=== PATIENT | female | born 1985 ===

== ENCOUNTER 2017-05-25 15:20 | Emergency (ER) | payer OTHER ==
[2017-05-25 15:47] VITALS: BMI 27.8
[2017-05-25] MEDS ORDERED: Betamethasone Soluspan 30 mg/5mL Inj Susp IM ONE (16:24)
[2017-05-25] MEDS: Betamethasone Soluspan 30 mg/5mL Inj Susp IM ONE (16:49)
[2017-05-25 21:07] VITALS: BP 126/68; PULSE 87
--- NOTE | 2017-05-25 23:00 | OBHP ---
Datetime: 05/25/2017 22:53 IP Adm Impression: , intrauterine IP Admit Plan: Observation/Evaluation; Discharge home Admit Comment, IP Provider: Late entry: Patient is a 32-year-old EDC of 06/21/2017 @ 36.1wk who presents for injection #1 of betamet hasone. Her history is significant for current growth restriction. She denies decrease d movement contractions and spontaneous rupture of membranes or vaginal bleeding. Her Past medical history denies Past surgical history denies Social history denies tobacco alcohol or drug use Prior OB history: delivery 1 for failed induction at term. Impression 36.1 weeks with intrauterine growth restriction plan: Betamethasone injection today. Return to the hospital tomorrow in 24 hours for second injection. Extremities - PN: Normal Abdomen - PN: Normal Back - PN: Normal Lungs - PN: Normal Heart - PN: Normal Neurologic - PN: Normal HEENT - PN: Normal General - PN: Normal FHR - Baseline A Provider: 130 EGA AdmitDate IP: 36.1 Vital Signs Provider: Reviewed; Within Normal Limits IP Chief Complaint: Other NICHD Variability Prov Fetus A: Moderate 6-25bpm NICHD Accel Fetus A IP Provider: 15X15 FHR Category Provider Fetus A: Category I NICHD Decel Fetus A IP Provider: None
== END 2017-05-25 17:00 | disposition home or self-care (01) ==
LOC: H.EROB2 15:20
DX: O36.5930 Maternal care for other known or suspected poor fetal growth, third trimester, not applicable or unspecified (principal); Z3A.36 36 weeks gestation of pregnancy; Z23 Encounter for immunization
CPT/HCPCS: 96372; 99281; J0702

== ENCOUNTER 2017-05-26 17:34 | Emergency (ER) | payer OTHER ==
[2017-05-25 15:47] VITALS: BMI 27.8
[2017-05-26] MEDS: Betamethasone Soluspan 30 mg/5mL Inj Susp IM ONE (18:01)
--- NOTE | 2017-05-26 18:43 | OBDCSUM ---
Datetime: 05/26/2017 18:23 Discharged to, Provider: Home Follow up at, Provider: [facility] L_D Disch Instr Activity: Normal activity Disch Instr Diet: Restricted, specify Discharge Diet restrict Prov: NPO after midnight (nothing to eat or drink after midnight) Discharge Instructions, Provider: Routine instructions given Discharge Time: 05/26/2017 18:23 Follow up in weeks, Provider: 05/27/2017 @ 0500 Disch Referrals: None Contraception discussed, Prov: No Discharge Diagnosis Prov Other: Growth arrest of AC at 36 weeks
--- NOTE | 2017-05-26 18:43 | OBHP ---
Datetime: 05/26/2017 18:07 IP Adm Impression: , intrauterine IP Chief Complaint Other: Arrest of growth IP Admit Plan: Observation/Evaluation; Discharge home Admit Comment, IP Provider: 32 yo G1 at 36+2 wks w/ EDC 06/21/2017 by LMP who present for second dos e of Betamethasone for FLM for arrest of growth of AC by MFM u/s on 05/25/2017. biometry revea led the growth in the 18th %ile (EFW 2433 grams, 5#6). AC was displaying arrest in growth. Pt receiv es her care w/ [facility] w/ Dr. Mcgrath. PMH: Healthy PSH: c/s in 2011 Meds: PNVs All: NKDA Soc hx: Pt denies tobacco, alcohol and illicit drug use Fam hx: Brother- SMA Field Care Coordinator hx: regular periods, denies STDs, denies abn paps Obhx: 02/2012 prmary c/s female, 7#6, post-dates, failed IOL, maternal temp, tachycardia PE: AFVSS Gen'l pt appears comfortable in stretcher Heart: RRR Chest: Lungs clear b/l Abd: soft, NT, gravid Ext: NT, no edema VE: deferred EFM: as above [place]: as above A/P: 32 yo at 36+2 wks for second dose of BMZ for arrest of AC growth, for delivery by c/s tomorrow as per Dr. Colon's recommendation. Pt received BMZ at 18:01. NST reactive. Pt told to return to L_D for repeat c/s tomorrow am. Extremities - PN: Normal Abdomen - PN: Normal Back - PN: Normal Lungs - PN: Normal Heart - PN: Normal Neurologic - PN: Normal General - PN: Normal FHR - Baseline A Provider: 130's Contraction Comments Provider: Quiet EGA AdmitDate IP: 36.2 Vital Signs Provider: Reviewed IP Chief Complaint: Other NICHD Variability Prov Fetus A: Moderate 6-25bpm NICHD Accel Fetus A IP Provider: 15X15 FHR Category Provider Fetus A: Category I NICHD Decel Fetus A IP Provider: None
[2017-05-26 22:42] VITALS: BP 109/69; PULSE 82
== END 2017-05-26 18:23 | disposition home or self-care (01) ==
LOC: H.EROB2 17:34
DX: O36.5930 Maternal care for other known or suspected poor fetal growth, third trimester, not applicable or unspecified (principal); Z3A.36 36 weeks gestation of pregnancy; Z23 Encounter for immunization
CPT/HCPCS: 96372; 99281; J0702

== ENCOUNTER 2017-05-27 05:01 | Inpatient (IN) | payer OTHER ==
[2017-05-27] MEDS ORDERED: Oxytocin 30 UNITS in Sodium Chloride 0.9% 500 ML IV ONE (05:23)
[2017-05-27] MEDS ORDERED: Lactated Ringer's 1,000 ML IV SCH ×2 (05:30→10:30)
[2017-05-27] MEDS: Lactated Ringer's 1,000 ML IV SCH ×2 (05:40→06:45)
[2017-05-27 06:16] LABS: BASO % 0.1 % (0.0-2.0); HEMOGLOBIN 9.9 g/dL (12.0-16.0); LYMPH # 1.2 K/uL (1.0-4.3); LYMPH % 9.1 % (20.0-40.0); MEAN CELL VOLUME 87.2 fl (81.0-99.0); MEAN CORPUSCULAR HEMOGLOBIN 28.2 pg (27.0-31.0); MEAN CORPUSCULAR HGB CONC 32.3 g/dL (33.0-37.0); MEAN PLATELET VOLUME 9.9 fl (7.2-11.7); MONO # 0.3 K/uL (0.0-0.8); MONO % 2.5 % (0.0-10.0); NEUT # 12.1 K/uL (1.8-7.0); NEUT % 88.3 % (50.0-75.0); PLATELET COUNT 178 K/uL (130-400); RBC 3.52 Mil/uL (3.80-5.20); RED CELL DISTRIBUTION WIDTH 13.7 % (11.5-14.5); WHITE BLOOD COUNT 13.7 K/uL (4.8-10.8)
[2017-05-27] MEDS ORDERED: ceFAZolin IV 2 gm in Dextrose 2 GM/50 ML BAG IVPB ONE ×2 (07:27→07:30)
--- NOTE | 2017-05-27 08:01 | OBADHP ---
Datetime: 05/27/2017 07:55 IP Chief Complaint Other: Arrest of AC groweth Admit Comment, IP Provider: 32 yo at 36+3 wks w/ arrest of AC growth on 05/25/2017 MFM u/s, s/p Betamethasone x 2. Pt scheduled for repeat c/s today as per recommendation of Dr. Colon. FHT reactive. Consents for section to be signed w/ Dr. Mcgrath. H_P dictated, "[id number]" (ES) Extremities - PN: Normal Abdomen - PN: Normal Back - PN: Normal Lungs - PN: Normal Heart - PN: Normal Neurologic - PN: Normal General - PN: Normal FHR - Baseline A Provider: 120's Contraction Comments Provider: Quiet Vital Signs Provider: Reviewed; Within Normal Limits NICHD Variability Prov Fetus A: Moderate 6-25bpm NICHD Accel Fetus A IP Provider: 15X15 FHR Category Provider Fetus A: Category I NICHD Decel Fetus A IP Provider: None IP Adm Impression: , intrauterine IP Admit Plan: Initiate Section protocol Datetime: 05/26/2017 18:07 IP Chief Complaint: Other EGA AdmitDate IP: 36.2 Datetime: 05/25/2017 22:53 HEENT - PN: Normal
[2017-05-27 08:04] LABS: EOSINOPHIL 1 % (0-7); LYMPHOCYTE 2 % (20-50); MONOCYTE 3 % (0-10); NEUTROPHIL 94 % (42-75); PLATELET ESTIMATE NORMAL (NORMAL); TOTAL CELLS COUNTED 100; TOXIC GRANULATION PRESENT
[2017-05-27] MEDS ORDERED: Phenylephrine 10 mg/ml Inj ONE (08:37)
[2017-05-27] MEDS ORDERED: ePHEDrine 50 mg/ml Inj ONE (08:37)
[2017-05-27] MEDS ORDERED: Morphine 1 mg/ml preservative-free Inj(Duramorph) ONE (08:37)
[2017-05-27] MEDS ORDERED: DiphenhydrAMINE 50 mg/ml Inj IVP PRN (09:29)
[2017-05-27] MEDS ORDERED: Oxycodone/Acetaminophen 5/325 mg Tab PO PRN (10:29)
--- NOTE | 2017-05-27 17:45 | HP ---
HISTORY OF PRESENT ILLNESS: This is a 32-year-old G2, P1-0-0-1 at 36 weeks and 3 days with an EDC of 06/21/2017 by LMP, who is scheduled for delivery today, as per recommendation by Dr. Colon. On 05/25/2017, the patient had an ultrasound that revealed biometry was in the 18th percentile, EFW was 2433 grams or 5 pounds 6 ounces, AC was displaying arresting growth and so, it was recommended that the patient receives steroids on that day and yesterday and that she should be delivered today. The patient is scheduled today for a repeat section. The patient has a history of a previous section. Her care was with Dr. Mcgrath with [facility]. The patient denies vaginal bleeding, leaking of fluid, or contractions and reports positive movement. All other systems reviewed and negative. PAST MEDICAL HISTORY: Healthy. PAST SURGICAL HISTORY: in 2011. MEDICATIONS: vitamins. ALLERGIES: NO KNOWN DRUG ALLERGIES. SOCIAL HISTORY: The patient denies tobacco, alcohol. No illicit drug use. FAMILY HISTORY: The patient's brother has spinal muscular atrophy. GYNECOLOGIC HISTORY: Regular periods. The patient denies any history of any sexually transmitted diseases or any abnormal pap smears. OBSTETRIC HISTORY: In February 2012, the patient underwent a primary section, female infant, weighing 7 pounds and 6 ounces for post-dates failed induction of labor with maternal fever and tachycardia. LABS: Pap smear was negative. Gonorrhea and chlamydia were negative. HIV was nonreactive. Hemoglobin electrophoresis was within normal limits. Urine culture with no growth. Rubella was immune. Her AFP was negative. Blood type was O positive. Antibody screen negative. On 03/30/2017, HIV was nonreactive, one-hour Glucola was 143, and RPR was nonreactive. On 04/09/2017, 3-hour glucose tolerance test: fasting was 67, one hour 89, two hours 77, and three hours 67, negative. GBS was done on 05/25/2017 and is pending. On 05/25/2017, hemoglobin was 11.7 and platelets were 208. Panorama was low risk male fetus. First trimester screen was within range. SMN1 copy number 1. Pt reports that FOB is not a carrier of SMA. PHYSICAL EXAMINATION: GENERAL: The patient appears comfortable, lying in bed. VITAL SIGNS: Afebrile. Vital signs stable. HEART: Regular rate and rhythm. LUNGS: Clear to auscultation bilaterally. ABDOMEN: Soft, nontender, gravid. EXTREMITIES: Nontender. No edema. VAGINAL: Deferred. EXTERNAL MONITORING: Baseline is in the 120s with moderate variability and positive accelerations. Tocodynamometer is quiet. ASSESSMENT AND PLAN: This is a 32-year-old 2, para 1-0-0-1 at 36 weeks and 3 days, status post betamethasone x 2, scheduled for repeat section today due to arrest of growth of the abdominal circumference on 05/25/2017 Maternal Medicine Ultrasound. Consents to be signed w/ Dr. Mcgrath. Maribel Walker MD MTDD
--- NOTE | 2017-05-27 19:39 | OBDS ---
DELIVERY PERSONNEL Delivery Doctor: Dewayne Mcgrath MD Scrub Nurse: Dodie [employer] Department Head: Yelitza You RN Anesthesiologist: Tarah Taylor MD MATERNAL INFORMATION Delivery Anesthesia: Spinal Medications in Delivery: Pitocin 30 units Estimated Blood Loss (ml): 800 Placenta Cultured: No Maternal Complications: None RN Comments: see provider comments. Provider Comments: See operative report LABOR SUMMARY EDC: 06/21/2017 00:00 EDC: 06/21/2017 00:00 No. Babies in Womb: 1 Attempted: No LABOR INFORMATION Reason for Induction: Not Applicable Oxytocin: N/A Group B Beta Strep: Done, Result Unknown Steroids Given: Full Course; < 24 Hours before Delivery MEMBRANES Membranes Rupture Method: Artificial Rupture of Membranes: 05/27/2017 09:04 Length of Rupture (hrs): 0.02 Amniotic Fluid Color: Bloody Amniotic Fluid Amount: Scant STAGES OF LABOR Stage 3 hrs: 0 Stage 3 min: 1 CSECTION DELIVERY Primary Indication: Repeat Elective Other Primary Indication: IUGR Secondary Indication: Repeat Elective CSection Urgency: Elective CSection Incidence: Repeat Labor: No Labor Elective: Elective CSection Incision: Lower Uterine Transverse BABY A INFORMATION Delivery Date/Time: 05/27/2017 09:05 Method of Delivery: Born in Route : No : N/A Forceps: N/A Vacuum Extraction: N/A Shoulder Dystocia : No SHOULDER DYSTOCIA BABY A Infant Delivery Date/Time: 05/27/2017 09:05 PRESENTATION/POSITION BABY A Presentation: Cephalic Cephalic Presentation: Vertex Breech Presentation: N/A PLACENTA INFORMATION BABY A Placenta Delivery Time : 05/27/2017 09:06 Placenta Method of Delivery: Spontaneous Placenta Status: Delivered SCORES BABY A Heart Rate 1 min: >100 bpm Resp Effort 1 min: Good Cry Reflex Irritability 1 min: Cough or Sneeze or Pulls Away Muscle Tone 1 min: Active Motion Color 1 min: Body [place], Extremities Blue Resuscitation Effort 1 min: Tactile Stimulation SCORE 1 MIN: 9 Heart Rate 5 min: >100 bpm Resp Effort 5 min: Good Cry Reflex Irritability 5 min: Cough or Sneeze or Pulls Away Muscle Tone 5 min: Active Motion Color 5 min: Body [place], Extremities Blue Resuscitation Effort 5 min: Tactile Stimulation SCORE 5 MIN: 9 INFORMATION BABY A Gestational Age at Delivery: 36.0 Gestational Status: Infant Outcome : Liveborn Infant Condition : Stable Sex: Male IDENTIFICATION/MEDS BABY A ID Band Number: [id number] ID Band Location: Left Leg; Left Arm WEIGHT/LENGTH BABY A Infant Birthweight (gms): 2650 Infant Weight (lb): 5 Infant Weight (oz): 13 CORD INFORMATION BABY A No. Cord Vessels: 3 Nuchal Cord : N/A Cord Blood Taken: N/A Suction: None ASSESSMENT BABY A Complications: None Physical Findings at Delivery: Within Normal Limits Respirations: Appears Normal Vulnerability Researcher/ALS Called : No Infant Care By: Maranda Wagoner Transferred To: Remains with Mother
--- NOTE | 2017-05-27 20:17 | OP ---
PROCEDURE DATE: PREOPERATIVE DIAGNOSES: Intrauterine growth restriction at 36 weeks, history of previous section, recommendation for delivery, abdominal circumference in 1 percentile. POSTOPERATIVE DIAGNOSES: Intrauterine growth restriction at 36 weeks, history of previous section, recommendation for delivery, abdominal circumference in 1 percentile. THE OPERATION PERFORMED: Repeat low-flap transverse section via Pfannenstiel skin incision. SURGEON: Bryanna Mcgrath MD. LUMBER PLANER: Maribel Walker MD. She was helpful in creating exposure, obtaining hemostasis, delivery of the infant. The procedure would not have been possible without her assistance. ANESTHESIA ADMINISTERED BY: Bird Taylor MD. OPERATIVE FINDINGS: A baby boy. Apgars 9 and 9, weighing 2650 grams. Normal uterus, tubes and ovaries were identified. IV FLUID INTAKE: The patient received approximately 700 mL of D5 LR intraoperatively. ESTIMATED BLOOD LOSS: 800 mL. URINE OUTPUT: Approximately 150 mL. COMPLICATIONS: There were no complications. DESCRIPTION OF PROCEDURE: After informed consent was obtained, the patient was taken to the operating room where she was given spinal anesthesia. She was then prepped and draped in the normal sterile fashion. A Pfannenstiel skin incision was then made with a scalpel, carried down to the underlying layer of fascia. The fascia was nicked in the midline. The fascial incision was then extended laterally with the curved Pino scissors. Superior aspect of the fascial incision was then grasped with Deidra clamps, elevated up and the rectus muscles were dissected off using both sharp and blunt dissection. Attention was then turned to the inferior aspect of the fascial incision which in a similar fashion was grasped with Deidra clamps, elevated up and the rectus muscles were dissected off using both sharp and blunt dissection. The rectus muscles were then in the midline. The peritoneum identified and entered sharply with the Metzenbaum scissors. The peritoneal incision was then extended superiorly and inferiorly with good visualization of the bladder. The bladder blade was then inserted. The vesicouterine peritoneum was identified and entered sharply with the Metzenbaum scissors. Bladder flap was then created digitally. The uterine incision was then made with a scalpel. The incision was then extended laterally with the bandage scissors. The infant's head was then delivered atraumatically. The nose and mouth were suctioned with DeLee suction trap. The cord was clamped and cut. The was handed off to awaiting pediatricians. The placenta was then removed manually. The uterus was exteriorized and cleared off all clots and debris. The uterine incision was repaired with 0-Vicryl in a running fashion. A second layer of the same suture was used to obtain an excellent hemostasis. The uterus was then returned to the abdomen. It was copiously irrigated. It was noted to be hemostatic. The peritoneum was then closed with 2-0 Vicryl in a running fashion. The muscles were reapproximated with 0-Vicryl in an interrupted fashion. The fascia was closed with 0-Vicryl in a running fashion. The skin was closed with 4-0 on a Eric needle. All sponge, lap, needle and instrument counts were correct x2. The patient was taken to the recovery room in awake and stable condition. Bryanna Mcgrath MD
[2017-05-27] MEDS: Simethicone 80 mg Chewtab PO SCH (22:05)
[2017-05-28] MEDS: Simethicone 80 mg Chewtab PO SCH ×5 (06:17→21:19)
[2017-05-28 07:08] LABS: HEMOGLOBIN 8.5 g/dL (12.0-16.0); MEAN CELL VOLUME 87.4 fl (81.0-99.0); RBC 3.04 Mil/uL (3.80-5.20); RED CELL DISTRIBUTION WIDTH 13.7 % (11.5-14.5); WHITE BLOOD COUNT 13.3 K/uL (4.8-10.8)
[2017-05-28] MEDS: Oxycodone/Acetaminophen 5/325 mg Tab PO PRN (23:38)
[2017-05-29] MEDS: Simethicone 80 mg Chewtab PO SCH ×4 (06:20→21:15)
--- NOTE | 2017-05-29 08:44 | OBPPN ---
Datetime: 05/29/2017 08:30 PP Pain Prov: Within normal limits PP Nausea Prov: Denies PP Flatus Prov: Yes PP BM Prov: No PP Abdomen/Uterus Prov: Normal PP Lochia Prov: Normal PP Extremities Prov: Normal PP C/S Incision Prov: Normal PP Progress Prov: Normal PP Comments Phys Exam Prov: Incision: intact w/ steri strips PP Impression Prov: Normal progression PP Plan Prov: Continue present management PP Progress Note Prov: POD 2 s/p repeat LTCS at 36+3 wks for arrest of AC growth, breast pumping Continue current managment Vital Signs Provider PP: Reviewed
[2017-05-29] MEDS: Oxycodone/Acetaminophen 5/325 mg Tab PO PRN ×2 (09:48→19:27)
[2017-05-30] MEDS: Simethicone 80 mg Chewtab PO SCH ×2 (05:40→10:11)
--- NOTE | 2017-05-30 09:00 | OBPPN ---
Datetime: 05/30/2017 08:55 PP Pain Prov: Within normal limits PP Nausea Prov: Denies PP Flatus Prov: Yes PP Breasts Prov: Not Done PP Heart Prov: Normal PP Lungs Prov: Normal PP Abdomen/Uterus Prov: Normal PP Lochia Prov: Not Done PP Vulva/Perineum Prov: Not Done PP CVA Tenderness Prov: Normal PP Extremities Prov: Normal PP C/S Incision Prov: Normal PP Impression Prov: Normal progression PP Plan Prov: Discharge PP Progress Note Prov: Doing well pain well-controlled reports minimal lochia Vital signs stable afebrile Uterus firm below the umbilicus Incision clean dry and intact Postoperative day #3 Ambulation regular diet probable discharge Consent obtained for circumcision Vital Signs Provider PP: Reviewed
[2017-05-30 20:29] VITALS: BP 130/81; PULSE 72; RESP 20; TEMP 98.1; O2SAT 98
== END 2017-05-30 16:25 | disposition home or self-care (01) | DRG 765 ==
LOC: H.EROB2 05:01 → H.L&D 05:25 → H.OB/GYN 13:15
PROVIDERS: ADMIT Obstetrics & Gynecology Gynecology; ATTEND Obstetrics & Gynecology Gynecology
PROC: 10D00Z1 Extraction of Products of Conception, Low, Open Approach (ICD-10-PCS; principal; 2017-05-27)
PROC: 4A1HXCZ Monitoring of Products of Conception, Cardiac Rate, External Approach (ICD-10-PCS; 2017-05-27)
DX: O34.219 Maternal care for unspecified type scar from previous cesarean delivery (principal); O60.14X0 Preterm labor third trimester with preterm delivery third trimester, not applicable or unspecified; O36.5930 Maternal care for other known or suspected poor fetal growth, third trimester, not applicable or unspecified; Z37.0 Single live birth; N85.8 Other specified noninflammatory disorders of uterus; Z3A.36 36 weeks gestation of pregnancy